=== PATIENT | female | born 1950 | race Caucasian/White ===

== ENCOUNTER → 2023-07-01 | Emergency (ER) | payer OTHER ==
[~2023-07-01] MED LIST: HYDROCODONE/APAP 7.5/325 MG TAB ONE; MORPHINE 4 MG/ML SYR ONE; ONDANSETRON 4 MG (ODT) TAB ONE
--- NOTE | 2023-07-01 15:06 | RAD REPORT ---
EXAM DESCRIPTION: RAD - Knee Left 3 View - 07/01/2023 2:46 pm CLINICAL HISTORY: Pain;Swelling COMPARISON: No comparisons TECHNIQUE: Left knee, 3 views. FINDINGS: Displaced fracture at the inferior aspect of the patella, with caudal distraction of at le ast 1 cm of the inferior fragment. No Dislocation or periosteal reaction.No joint effusion seen. No j oint space narrowing. Soft tissue swelling about the knee anteriorly. IMPRESSION: Displaced fracture of the patella with caudal distraction of the inferior fragment, at l east 1 cm. .
--- NOTE | 2023-07-01 15:22 | EDPHYS ---
Physician Documentation [facility] Name: Antonia Perez Age: 72 yrs Sex: Female : 1950 Arrival Date: 07/01/2023 Time: 13:46 Bed 7 Private MD: ED Physician Papo Sanchez HPI: 07/01 14:14 This 72 yrs old Female presents to ER via EMS with complaints of Knee Pain. kdr 14:14 Just prior to arrival the patient tripped over a rock while walking her dog and fell kdr injuring her left knee. Patient states that her leg was angulated with what appeared to be the kneecap "sticking up". As she was driving herself along back to her house, her leg appeared to relocate to a anatomical position. She was still unable to ambulate. However, her knee appeared to be anatomically correct. Patient denies any other injury at this time.. Onset: The symptoms/episode began/occurred just prior to arrival. Severity of symptoms: At their worst the symptoms were moderate incapacitating just prior to arrival, in the emergency department the symptoms have improved moderately. The patient has not experienced similar symptoms in the past. The patient has not recently seen a physician. Historical: - Allergies: 13:52 No Known Allergies; cp4 - Immunization history:: Adult Immunizations up to date. - Social history:: Smoking status: Patient denies any tobacco usage or history of. ROS: 14:14 Constitutional: Negative for fever, chills, and weight loss, Eyes: Negative for injury, kdr pain, redness, and discharge, ENT: Negative for injury, pain, and discharge, Neck: Negative for injury, pain, and swelling, Cardiovascular: Negative for chest pain, palpitations, and edema, Respiratory: Negative for shortness of breath, cough, wheezing, and pleuritic chest pain, Abdomen/GI: Negative for abdominal pain, nausea, vomiting, diarrhea, and constipation, Back: Negative for injury and pain, : Negative for injury, bleeding, discharge, and swelling, Skin: Negative for injury, rash, and discoloration, Neuro: Negative for headache, weakness, numbness, tingling, and seizure activity. Psych: Negative for depression, anxiety, suicide ideation, homicidal ideation, and hallucinations, Allergy/Immunology: Negative for hives, rash, and allergies, Endocrine: Negative for neck swelling, polydipsia, polyuria, polyphagia, and marked weight changes, Hematologic/Lymphatic: Negative for swollen nodes, abnormal bleeding, and unusual bruising, 14:14 MS/extremity: Positive for injury or acute deformity, decreased range of motion, deformity, pain, swelling, tenderness, of the left knee, Exam: 14:14 Constitutional: This is a well developed, well nourished patient who is awake, alert, kdr and in no acute distress. Head/Face: Normocephalic, atraumatic. Eyes: Pupils equal round and reactive to light, extra-ocular motions intact. Lids and lashes normal. Conjunctiva and sclera are non-icteric and not injected. Cornea within normal limits. Periorbital areas with no swelling, redness, or edema. Neck: Trachea midline, no thyromegaly or masses palpated, and no cervical lymphadenopathy. Supple, full range of motion without nuchal rigidity, or vertebral point tenderness. No Meningismus. Chest/axilla: Normal chest wall appearance and motion. Nontender with no deformity. No lesions are appreciated. Cardiovascular: Regular rate and rhythm with a normal S1 and S2. No gallops, murmurs, or rubs. Normal PMI, no JVD. No pulse deficits. Respiratory: Lungs have equal breath sounds bilaterally, clear to auscultation and percussion. No rales, rhonchi or wheezes noted. No increased work of breathing, no retractions or nasal flaring. Abdomen/GI: Soft, non-tender, with normal bowel sounds. No distension or tympany. No guarding or rebound. No evidence of tenderness throughout. Back: No spinal tenderness. No costovertebral tenderness. Full range of motion. Skin: Warm, dry with normal turgor. Normal color with no rashes, no lesions, and no evidence of cellulitis. Neuro: Awake and alert, GCS 15, oriented to person, place, time, and situation. Cranial nerves II-XII grossly intact. Motor strength 5/5 in all extremities. Sensory grossly intact. Cerebellar exam normal. Normal gait. Psych: Awake, alert, with orientation to person, place and time. Behavior, mood, and affect are within normal limits. 14:14 Musculoskeletal/extremity: Extremities: grossly normal except: noted in the left knee: decreased ROM, erythema, pain, swelling, tenderness, Vital Signs: 13:51 BP 141 / 86; Pulse 81; Resp 16; Temp 98; Pulse Ox 100% ; cp4 16:00 BP 131 / 86; Pulse 84; Resp 18; Pulse Ox 100% ; cp4 MDM: 14:14 Data reviewed: vital signs, nurses notes, radiologic studies. kdr 15:21 Patient medically screened. kdr 07/01 14:08 Order name: Knee Left 3 View XRAY; Complete Time: 15:08 kdr 07/01 15:20 Order name: Knee Immobilizer; Complete Time: 15:21 kdr 07/01 15:20 Order name: Crutches; Complete Time: 15:20 kdr Administered Medications: 15:30 Drug: morphine IM 4 mg IM once Route: IM; Site: right deltoid; cp4 15:31 Drug: Ondansetron PO 4 mg PO once Route: PO; cp4 15:31 Not Given (Patient Refused): hydrocodone-acetaminophen(7.5 mg-325 mg) 1 tabs PO once cp4 Disposition Summary: 07/01/23 15:21 Discharge Ordered Notes: Location: Home kdr Problem: new kdr Symptoms: have improved kdr Condition: Stable kdr Diagnosis - Fracture of patella - left/closed kdr Followup: kdr - With: Otf Hirsch MD - When: 2 - 3 days - Reason: Further diagnostic work-up, Recheck today's complaints, Continuance of care, Re-evaluation by your physician Discharge Instructions: - Discharge Summary Sheet kdr Forms: - Medication Reconciliation Form kdr - Thank You Letter kdr - Prescription Opioid Use kdr - Patient Portal Instructions kdr - Leadership Thank You Letter kdr Prescriptions: - acetaminophen-codeine 300-30 mg Oral tablet - take 2 tablet ORAL route every 4-6 hours As needed as needed for pain; 20 kdr tablet; Refills: 0, Product Selection Permitted Signatures: Dispatcher [employer] EDIN Papo Sanchez MD MD kdr Breana Neville cp4
--- NOTE | 2023-07-01 15:22 | ER ---
Nurse's Notes [facility] Name: Antonia Perez Age: 72 yrs Sex: Female : 1950 Arrival Date: 07/01/2023 Time: 13:46 Bed 7 Private MD: Diagnosis: Fracture of patella-left/closed Presentation: 07/01 13:51 Chief complaint: EMS states: left knee pain after tripping over a rock walking the dog. cp4 Coronavirus screen: Client denies travel out of the [place] in the last 14 days. At this time, the client does not indicate any symptoms associated with coronavirus-19. Ebola Screen: Patient negative for fever greater than or equal to 101.5 degrees Fahrenheit, and additional compatible Ebola Virus Disease symptoms Patient denies exposure to infectious person. Patient denies travel to an Ebola-affected area in the 21 days before illness onset. No symptoms or risks identified at this time. Initial Sepsis Screen: Does the patient meet any 2 criteria? No. Patient's initial sepsis screen is negative. Does the patient have a suspected source of infection? No. Patient's initial sepsis screen is negative. Risk Assessment: Do you want to hurt yourself or someone else? Patient reports no desire to harm self or others. Onset of symptoms was July 01, 2023. 13:51 Method Of Arrival: EMS: [facility] cp4 13:51 Acuity: JUDITH 4 cp4 Triage Assessment: 13:52 General: Appears in no apparent distress. Behavior is calm, cooperative, appropriate cp4 for age. Pain: Complains of pain in left knee. Musculoskeletal: Reports pain in left knee. Historical: - Allergies: 13:52 No Known Allergies; cp4 - Immunization history:: Adult Immunizations up to date. - Social history:: Smoking status: Patient denies any tobacco usage or history of. Screenin:54 [facility] ED Fall Risk Assessment (Adult) History of falling in the last 3 months, cp4 including since admission Yes- single mechanical fall (1 pt) Confusion or Disorientation No (0 pts) Intoxicated or Sedated No (0 pts) Impaired Gait No (0 pts) Mobility Assist Device Used No (0 pt) Altered Elimination No (0 pt) Score/Fall Risk Level 0 - 2 = Low Risk Oriented to surroundings, Maintained a safe environment, Educated pt \T\ family on fall prevention, incl call for assistance when getting out of bed, Assessed \T\ reinforced patient's understanding of fall precautions, Hourly rounding (assess needs \T\ fall precautionary measures) done. Abuse screen: Denies threats or abuse. Nutritional screening: No deficits noted. Tuberculosis screening: No symptoms or risk factors identified. Assessment: 13:54 Reassessment: Patient appears in no apparent distress at this time. cp4 Vital Signs: 13:51 BP 141 / 86; Pulse 81; Resp 16; Temp 98; Pulse Ox 100% ; cp4 16:00 BP 131 / 86; Pulse 84; Resp 18; Pulse Ox 100% ; cp4 ED Course: 13:50 Patient arrived in ED. cp4 13:50 Papo Sanchez MD is Attending Physician. kdr 13:50 Breana Neville is Primary Nurse. cp4 13:52 Triage completed. cp4 13:52 Arm band placed on right wrist. Patient placed in the treatment room, on a stretcher. cp4 13:54 Bed in low position. Call light in reach. Side rails up X 1. cp4 13:54 No provider procedures requiring assistance completed. cp4 14:48 Knee Left 3 View XRAY In Process Unspecified. EDMS 15:20 Otf Hirsch MD is Referral Physician. kdr 16:17 Provided Education on: patella fracture. cp4 16:17 Patient did not have IV access during this emergency room visit. cp4 Administered Medications: 15:30 Drug: morphine IM 4 mg IM once Route: IM; Site: right deltoid; cp4 15:31 Drug: Ondansetron PO 4 mg PO once Route: PO; cp4 15:31 Not Given (Patient Refused): hydrocodone-acetaminophen(7.5 mg-325 mg) 1 tabs PO once cp4 Medication: 13:54 VIS not applicable for this client. cp4 Outcome: 15:21 Discharge ordered by . kdr 16:17 Discharged to home via wheelchair, cp4 16:17 Condition: stable 16:17 Discharge instructions given to patient, Instructed on discharge instructions, follow up and referral plans. medication usage, Demonstrated understanding of instructions, follow-up care, medications, Prescriptions given X 1, 16:18 Patient left the ED. cp4 Signatures: Dispatcher [employer] EDNE Papo Sanchez MD MD kdr Potter, Christina cp4
[2023-07-01 16:41] VITALS: BP 131/86; TEMP 98; O2SAT 100
== END ==
LOC: ER 13:46
DX: S82.092A Other fracture of left patella, initial encounter for closed fracture (principal)
CPT/HCPCS: 73562; Q0162; 96372; 99284